=== PATIENT | male | born 1950 | race Caucasian/White ===

== ENCOUNTER 2016-03-16 19:40 | Inpatient (IN) | payer MEDICAID, MEDICARE ==
[~2016-03-16] VITALS: Ht 180.3 cm; Wt 90.7 kg
[2016-03-16] MEDS ORDERED: TRAMADOL 50 MG TAB PO PRN (23:05)
[2016-03-16] MEDS ORDERED: NITROGLYCERIN SL 0.4 MG TAB SL PRN (23:05)
[2016-03-16] MEDS ORDERED: ACETAMINOPHEN 325 MG TAB PO PRN (23:05)
[2016-03-16] MEDS ORDERED: MORPHINE 2 MG/ML SYR IV PRN (23:05)
[2016-03-16] MEDS ORDERED: SALINE FLUSH 10 ML FLUSH PRN (23:05)
[2016-03-16] MEDS ORDERED: ONDANSETRON 4 MG VIAL IV PRN (23:05)
[2016-03-16] MEDS ORDERED: TEMAZEPAM 7.5 MG CAP PO PRN (23:05)
[2016-03-16] MEDS ORDERED: SODIUM CHLORIDE 0.9% 1,000 ML IV SCH (23:05)
[2016-03-16] MEDS ORDERED: NITROGLYCERIN 50 MG/250 ML IV PRN (23:05)
[2016-03-16] MEDS ORDERED: DOCUSATE SOD 100 MG CAP PO PRN (23:05)
[2016-03-16] MEDS ORDERED: SODIUM CHLORIDE 0.9% FLUSH BAG 500 ML IV PRN (23:05)
[2016-03-16 23:12] VITALS: BP_SYST 140; RESP 20; TEMP 97.7
[2016-03-16 23:13] VITALS: Ht 180.3 cm; Wt 90.7 kg
[2016-03-16 23:46] VITALS: RESP 20
[2016-03-16] MEDS: LORAZEPAM 0.5 MG TAB PO PRN (23:49)
[2016-03-17 03:32] VITALS: BP_SYST 142; RESP 18; TEMP 98.1
[2016-03-17 07:52] VITALS: BP_SYST 114; RESP 18; TEMP 97.8
[2016-03-17] MEDS: SALINE FLUSH 10 ML FLUSH SCH ×2 (08:24→21:23)
[2016-03-17] MEDS: ASPIRIN EC 81 MG TAB PO SCH (08:24)
[2016-03-17] MEDS: LORAZEPAM 0.5 MG TAB PO PRN ×2 (09:45→18:20)
[2016-03-17 11:29] VITALS: BP_SYST 147; RESP 18; TEMP 97.3
[2016-03-17] MEDS: HCTZ 25 MG TAB PO SCH (12:01)
[2016-03-17] MEDS ORDERED: OXYCODONE 5 MG TAB PO PRN (12:40)
[2016-03-17] MEDS: METOPROLOL TART 25 MG TAB PO SCH (14:38)
[2016-03-17] MEDS: LISINOPRIL 5 MG TAB PO SCH (14:38)
[2016-03-17 15:34] VITALS: BP_SYST 150; RESP 18; TEMP 97.5
[2016-03-17] MEDS: CALCIUM CARB/VIT D3 600 MG TAB PO SCH ×2 (17:02→21:21)
[2016-03-17 19:00] VITALS: BP_SYST 122; RESP 18; TEMP 97.8
[2016-03-17] MEDS ORDERED: TAMSULOSIN 0.4 MG CAP PO SCH (21:00)
[2016-03-17] MEDS: clonazePAM 0.5 MG TAB PO SCH (21:21)
[2016-03-17 23:22] VITALS: BP_SYST 115; RESP 18; TEMP 97.4
[2016-03-18 03:42] VITALS: BP_SYST 148; RESP 18; TEMP 98
[2016-03-18] MEDS ORDERED: LEVOTHYROXINE 0.025 MG TAB PO SCH (07:00)
[2016-03-18] MEDS ORDERED: ONDANSETRON 4 MG VIAL ONE (08:42)
[2016-03-18] MEDS ORDERED: LEXISCAN 0.4 MG/5 ML SYRINGE IV ONE (08:42)
[2016-03-18] MEDS ORDERED: amLODIPine 5 MG TAB PO SCH (09:00)
[2016-03-18 10:25] VITALS: BP_SYST 129; RESP 18; TEMP 97.8
[2016-03-18] MEDS ORDERED: MISSING DOSE XX ONE (10:40)
[2016-03-18] MEDS: METOPROLOL TART 25 MG TAB PO SCH (10:41)
[2016-03-18] MEDS: clonazePAM 0.5 MG TAB PO SCH (10:41)
[2016-03-18] MEDS: HCTZ 25 MG TAB PO SCH (10:41)
[2016-03-18] MEDS: SALINE FLUSH 10 ML FLUSH SCH (10:41)
[2016-03-18] MEDS: LISINOPRIL 5 MG TAB PO SCH (10:41)
[2016-03-18] MEDS: LORAZEPAM 0.5 MG TAB PO PRN (10:42)
[2016-03-18] MEDS: ASPIRIN EC 81 MG TAB PO SCH (10:42)
[2016-03-18] MEDS: CALCIUM CARB/VIT D3 600 MG TAB PO SCH (12:43)
[2016-03-18 12:51] VITALS: BP_SYST 129; RESP 18; TEMP 97.8
== END 2016-03-18 14:05 | disposition home or self-care (01) | DRG 303 ==
LOC: ENRESERV → ENRESERVDT → ENRESERVTM → EEVIPCON 19:40 → ER 19:40 → EMR 22:02 → ENPENDDIS 22:02 → PCU 22:40 → OBSVTOIN 03-17 15:44
PROVIDERS: ADMIT Specialist; ATTEND Specialist
DX: I25.110 Atherosclerotic heart disease of native coronary artery with unstable angina pectoris (principal); I10 Essential (primary) hypertension; Z85.46 Personal history of malignant neoplasm of prostate; Z82.49 Family history of ischemic heart disease and other diseases of the circulatory system; E03.9 Hypothyroidism, unspecified; J45.909 Unspecified asthma, uncomplicated; E78.00 Pure hypercholesterolemia, unspecified; Z82.3 Family history of stroke
CPT/HCPCS: 36415; 71010; 78452; 80053; 80061; 82550; 82553; 83735; 84484; 85025; 85610; 85730; 93005; 93017; 94799